=== PATIENT | female | born 1995 | race Caucasian/White ===

== ENCOUNTER 2016-10-17 02:12 | Emergency (ER) | payer OTHER ==
--- NOTE | 2016-10-17 04:45 | ED CLINICAL REPORT ---
Clinical Report - Physicians/Mid Levels [facility] [address] [place] [address] 10/17/2016 2:12 Patient: LUCIEN EL Time Seen: 02:16; initial patient contact. Arrived- By private vehicle. Historian- patient and family. HISTORY OF PRESENT ILLNESS Chief Complaint: INJURY TO HEAD. Location of injuries- head, chest and left hip. The injury occurred just prior to arrival. Occurred at home. Fell and landed on the ground; slipped. The patient complains of moderate pain in the chest and left lower extremity (hip). The patient sustained a moderate blow to the head and was dazed. No neck pain or seizure. The patient had loss of consciousness lasting several minutes but remembers the accident. REVIEW OF SYSTEMS No numbness, nausea, weakness, loss of vision or vomiting. No difficulty breathing, bladder dysfunction or laceration. All systems otherwise negative, except as recorded above. PAST HISTORY Negative. Problems: no known problems. Surgeries: No history of previous surgery. Additional Surgeries: no known surgeries. Medications: None. Allergies: No Known Drug Allergy. SOCIAL HISTORY Never smoker. Occasional alcohol use. No drug use. ADDITIONAL NOTES The nursing notes have been reviewed. PHYSICAL EXAM Vital Signs: 10/17/2016 02:32 BP: 115/64. HR: 74. RR: 14. O2 saturation: 100%. Temp: 97.8 F. Pain level now: 2/10. Have been reviewed as normal. Appearance: Lethargic. No acute distress. Head: Head non-tender. No swelling of head. Eyes: Pupils equal, round and reactive to light. EOM intact. ENT: No dental injury. Pharynx normal. Neck: Painless ROM. Neck non-tender. CVS: Heart sounds normal. Rate normal. Rhythm normal. Respiratory: Chest wall injury: mild tenderness located in the middle and left chest. No splinting present. No paradoxical movement. Abdomen: Soft and nontender. No organomegaly. Back: No tenderness. ROM normal. Skin: Skin intact. Skin warm and dry. Extremities: Left hip: mild tenderness. No erythema. No limitation in ROM. Neuro: Oriented X 3. Mood/affect normal. Speech normal. LABS, X-RAYS, AND EKG CT Head: Normal study. Head CT performed without contrast. The study was independently viewed by me, interpreted by the radiologist and discussed with the radiologist. PROGRESS AND PROCEDURES Disposition: Discharged home in good and improved condition. Condition: good. CLINICAL IMPRESSION Concussion. Loss of consciousness for a few seconds. Confusion. Multiple contusions to the left chest and left hip. INSTRUCTIONS Apply ice for 20 minutes four times a day. Don't apply ice directly to skin. Do not work today. Your Current Medications: CONTINUE TAKING THE FOLLOWING MEDICATIONS: None*. Follow-up: Follow up with your doctor in about two days. Call for an appointment. Screening today revealed the patient's blood pressure to be in the normal range. (Electronically signed by Ramo Fowler Dr. 10/18/2016 9:55)
--- NOTE | 2016-10-17 04:45 | ED ORDER SUMMARY ---
..... Patient: LUCIEN EL OrderSheet [facility] VisitID: [id number] [place] [address] 21y, F Registration Date/Time: 10/17/2016 ORDER SHEET Weight: 49.8 kg (stated) Allergies: No Known Drug Allergy GENERAL ORDERS: CT Head wo Cont Urgent (02:17 10/17/2016 Ashley Marr) (Ack 2:20 RFay) (2:55 JSanders R.N.) CBC w Diff Urgent (02:18 10/17/2016 Ashley Marr) (Ack 2:34 RKaruga) (2:55 JSanders R.N.) CMP Urgent (02:18 10/17/2016 Ashley Marr) (Ack 2:34 RKaruga) (2:55 JSanders R.N.) UA-Culture if indicated Urgent (02:18 10/17/2016 Ashley Marr) (Ack 2:34 RKaruga) (3:23 JSanders R.N.) Urine Drug Screen Urgent (02:18 10/17/2016 Ashley Marr) (Ack 2:34 RKaruga) (3:23 JSanders R.N.) Urine Urgent (02:18 10/17/2016 Ashley Marr) (Ack 2:34 RKaruga) (3:23 JSanders R.N.) Ethyl Alcohol Urgent (02:18 10/17/2016 Ashley Marr) (Ack 2:34 RKaruga) (2:55 JSanders R.N.) Ribs Unilat w PA Chest Left Urgent (04:03 10/17/2016 Ashley Marr) (Ack 4:12 RKaruga) (Cancelled: Physician Order4:40 Ashley Marr) MEDICATION ORDERS: IV FLUIDS: IV Saline Lock (02:18 10/17/2016 Ashley Marr) (2:56 JSanders R.N.) ORDER SHEET NOTES: [Electronically signed by Pia Glover R.N. (06:31 10/17/2016)] [Electronically signed by Ramo Fowler Dr. (09:55 10/18/2016)] [Electronically locked/signed by Pia Glover R.N. (06:31 10/17/2016)]
--- NOTE | 2016-10-17 04:45 | ED NURSING NOTES ---
Clinical Report - Nurses [facility] [address] [place] [address] 10/17/2016 2:12 Patient: LUCIEN EL TRIAGE 02:15 10/17/16 late entry -. --02:47 Pia Glover R.N. Triage time 02:Oct 17 2016. Acuity: LEVEL 2. Chief Complaint: FALL (On a wet board and she fell, conscious at that time then got dizzy and went back to ground, decrease LOC.). 02:21 10/17/16. --02:21 Pia Glover R.N. 02:32 10/17/16. BP: 115/64 (regular adult cuff) taken on the left arm. HR: 74. RR: 14. O2 saturation: 100% on room air. Temp: 97.8 F (oral). Pain level now: 06/25. --02:47 Pia Glover R.N. Weight: 49.8 kg stated. Height/Length: 63 inches Per Patient. BMI: 19.5. --02:46 Pia Glover R.N. Medications None. --03:08 Pia Glover R.N. Allergies No Known Drug Allergy. --03:08 Pia Glover R.N. History Arrived by private vehicle. Historian: (friend). Accompanied by friend. This occurred (1hour and 45 minutes ago). Occurred at home (in [place]). ( Friend says no N/V noted). 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 Trauma activation: Pre-hospital notification of patient arrival was not received. PAST MEDICAL HX: ( Unable to access patients condition due to Decrease LOC). SOCIAL HX: Never smoker. Occasional alcohol use; consumes beer. No drug use. No infectious disease exposure. --02:21 Pia Glover R.N. PROBLEMS: no known problems. ADDITIONAL SURGERIES: no known surgeries. Interventions ID band on patient. To treatment room. --02:21 Pia Glover R.N. PHYSICAL ASSESSMENT late entry - 02:20 10/17/16. To room via wheelchair. Patient gowned. GENERAL / NEURO / PSYCH: Appears in no acute distress. ( Patient drowsy, keeps asking same question about what happened. She remembers day, month and who president is. Patient awakens to loud voice). HEENT: Pupils equal, round and reactive to light. Head non-tender. RESPIRATORY: Respirations not labored. Chest nontender. Breath sounds within normal limits. CVS: Normal heart rate and rhythm. Pulses within normal limits. Capillary refill less than 2 seconds. GI / : Abdomen soft and nontender. SKIN: Skin intact. Skin is warm. BACK: Soft tissue tenderness in the left mid thoracic paraspinous region and left upper lumbar paraspinous region. --02:51 Pia Glover R.N. NURSING PROGRESS NOTES late entry - 02:15 10/17/16. Patient transported to CT by wheelchair with nurse. (02:15 Oct 17 2016). --02:52 Pia Glvoer R.N. late entry - 02:20 10/17/16. The plan of care for this patient has been created. Reassurance given. Two patient identifiers checked. Call light placed in reach. Side rails up x 2. Bed placed in lowest position. Brakes of bed on. Patient ready for evaluation- chart flagged and ED physician notified. --02:54 Pia Glover R.N. 02:54 10/17/16. BP: 111/70 (regular adult cuff) taken on the left arm. HR: 72. RR: 15. O2 saturation: 100% on room air. --02:55 Pia Glover R.N. 02:40 10/17/2016 Site #1 started via IV in the right antecubital space with an 20g angiocath, with aseptic technique and good blood return; one attempt. Blood drawn: rainbow set. Labeled in the presence of the patient and sent to the lab. Saline lock flushed with 10 mL saline. --02:55 Pia Glover R.N. 02:58 10/17/16. ( Patient keeps falling asleep and only waking up to pain and loud voice. Sat her up more and having her talk to her friend "Andrea" at bedside). --02:58 Pia Glover R.N. 03:00 10/17/16. ( Patient says she has a throbbing GILBERT on left temperal). --03:00 Pia Glover R.N. 03:01 10/17/16. BP: 105/65 (regular adult cuff) taken on the left arm, while sitting. HR: 73. RR: 16. O2 saturation: 100% on room air. --03:03 Pai Glover R.N. 03:06 10/17/16. ( Patient alert now, talking more to Andrea (friend), she doesnt remember what happened, she continues to ask what happened. She is A&O x 4. She says she has to work tomorrow. 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 --03:06 Pia Glover R.N. ( patient talking to friend, A&O x 4). [place] COMA SCORE: [place] Coma Scale: 15- eyes open spontaneously (4); best verbal response- oriented x 4 (5); best motor response- obeys commands (6). --04:02 Pia Glover R.N. 04:01 10/17/16. BP: 102/58 (regular adult cuff) taken on the left arm, while sitting. HR: 80. RR: 16. O2 saturation: 100% on room air. Pain level now: 1/10. Additional comments: GILBERT. --04:02 Pia Glover R.N. DISPOSITION / DISCHARGE 04:56 10/17/2016 Site #1 removed upon discharge. Bandaid applied. --05:06 Pia Glover R.N. 05:08 10/17/16. Departure time: 05:Oct 17 2016. Condition at departure: improved. No learning barriers present. Discharge instructions provided and reviewed with the patient. Treatments reviewed (Ice). Work note given. Patient verbalized understanding. Written instructions provided in [place]. The patient was discharged by the physician. She was discharged home and accompanied by manager fine. She left the Emergency Department ambulatory and via private vehicle. Dialysis Technician driving. --05:08 Pia Glover R.N. 05:04 10/17/16. BP: 106/55 (regular adult cuff) taken on the left arm. HR: 66. RR: 18. O2 saturation: 100% on room air. Temp: 97.8 F (oral). Pain level now: 05/25. --05:08 Pia Glover R.N. Locked/Released at 10/17/2016 6:31 by Pia Glover R.N.
--- NOTE | 2016-10-17 04:45 | ED ORDER SUMMARY ---
..... Patient: LUCIEN EL OrderSheet [facility] VisitID: [id number] [place] [address] 21y, F Registration Date/Time: 10/17/2016 ORDER SHEET Weight: 49.8 kg (stated) Allergies: No Known Drug Allergy GENERAL ORDERS: CT Head wo Cont Urgent (02:17 10/17/2016 Ashley Marr) (Ack 2:20 RFay) (2:55 JSanders R.N.) CBC w Diff Urgent (02:18 10/17/2016 Ashley Marr) (Ack 2:34 RKaruga) (2:55 JSanders R.N.) CMP Urgent (02:18 10/17/2016 Ashley Marr) (Ack 2:34 RKaruga) (2:55 JSanders R.N.) UA-Culture if indicated Urgent (02:18 10/17/2016 Ashley Marr) (Ack 2:34 RKaruga) (3:23 JSanders R.N.) Urine Drug Screen Urgent (02:18 10/17/2016 Ashley aMrr) (Ack 2:34 RKaruga) (3:23 JSanders R.N.) Urine Urgent (02:18 10/17/2016 Ashley Marr) (Ack 2:34 RKaruga) (3:23 JSanders R.N.) Ethyl Alcohol Urgent (02:18 10/17/2016 Ashley Marr) (Ack 2:34 RKaruga) (2:55 JSanders R.N.) Ribs Unilat w PA Chest Left Urgent (04:03 10/17/2016 Ashley Marr) (Ack 4:12 RKaruga) (Cancelled: Physician Order4:40 Aslhey Marr) MEDICATION ORDERS: IV FLUIDS: IV Saline Lock (02:18 10/17/2016 Ashley Marr) (2:56 JSanders R.N.) ORDER SHEET NOTES: [Electronically signed by Pia Glover R.N. (06:31 10/17/2016)] [Electronically signed by Ramo Fowler Dr. (09:55 10/18/2016)] [Electronically locked/signed by Pia Glover R.N. (06:31 10/17/2016)]
--- NOTE | 2016-10-17 04:45 | ED NURSING NOTES ---
Clinical Report - Nurses [facility] [address] [place] [address] 10/17/2016 2:12 Patient: LUCIEN EL TRIAGE 02:15 10/17/16 late entry -. --02:47 Pia Glover R.N. Triage time 02:Oct 17 2016. Acuity: LEVEL 2. Chief Complaint: FALL (On a wet board and she fell, conscious at that time then got dizzy and went back to ground, decrease LOC.). 02:21 10/17/16. --02:21 Pia Glover R.N. 02:32 10/17/16. BP: 115/64 (regular adult cuff) taken on the left arm. HR: 74. RR: 14. O2 saturation: 100% on room air. Temp: 97.8 F (oral). Pain level now: 06/25. --02:47 Pia Glover R.N. Weight: 49.8 kg stated. Height/Length: 63 inches Per Patient. BMI: 19.5. --02:46 Pia Glover R.N. Medications None. --03:08 Pia Glover R.N. Allergies No Known Drug Allergy. --03:08 Pia Glover R.N. History Arrived by private vehicle. Historian: (friend). Accompanied by friend. This occurred (1hour and 45 minutes ago). Occurred at home (in [place]). ( Friend says no N/V noted). 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 Trauma activation: Pre-hospital notification of patient arrival was not received. PAST MEDICAL HX: ( Unable to access patients condition due to Decrease LOC). SOCIAL HX: Never smoker. Occasional alcohol use; consumes beer. No drug use. No infectious disease exposure. --02:21 Pia Glover R.N. PROBLEMS: no known problems. ADDITIONAL SURGERIES: no known surgeries. Interventions ID band on patient. To treatment room. --02:21 Pia Glover R.N. PHYSICAL ASSESSMENT late entry - 02:20 10/17/16. To room via wheelchair. Patient gowned. GENERAL / NEURO / PSYCH: Appears in no acute distress. ( Patient drowsy, keeps asking same question about what happened. She remembers day, month and who president is. Patient awakens to loud voice). HEENT: Pupils equal, round and reactive to light. Head non-tender. RESPIRATORY: Respirations not labored. Chest nontender. Breath sounds within normal limits. CVS: Normal heart rate and rhythm. Pulses within normal limits. Capillary refill less than 2 seconds. GI / : Abdomen soft and nontender. SKIN: Skin intact. Skin is warm. BACK: Soft tissue tenderness in the left mid thoracic paraspinous region and left upper lumbar paraspinous region. --02:51 Pia Glover R.N. NURSING PROGRESS NOTES late entry - 02:15 10/17/16. Patient transported to CT by wheelchair with nurse. (02:15 Oct 17 2016). --02:52 Pia Glover R.N. late entry - 02:20 10/17/16. The plan of care for this patient has been created. Reassurance given. Two patient identifiers checked. Call light placed in reach. Side rails up x 2. Bed placed in lowest position. Brakes of bed on. Patient ready for evaluation- chart flagged and ED physician notified. --02:54 Pia Glover R.N. 02:54 10/17/16. BP: 111/70 (regular adult cuff) taken on the left arm. HR: 72. RR: 15. O2 saturation: 100% on room air. --02:55 Pia Glover R.N. 02:40 10/17/2016 Site #1 started via IV in the right antecubital space with an 20g angiocath, with aseptic technique and good blood return; one attempt. Blood drawn: rainbow set. Labeled in the presence of the patient and sent to the lab. Saline lock flushed with 10 mL saline. --02:55 Pia Glover R.N. 02:58 10/17/16. ( Patient keeps falling asleep and only waking up to pain and loud voice. Sat her up more and having her talk to her friend "Andrea" at bedside). --02:58 Pia Glover R.N. 03:00 10/17/16. ( Patient says she has a throbbing GILBERT on left temperal). --03:00 Pia Glover R.N. 03:01 10/17/16. BP: 105/65 (regular adult cuff) taken on the left arm, while sitting. HR: 73. RR: 16. O2 saturation: 100% on room air. --03:03 Pia Glover R.N. 03:06 10/17/16. ( Patient alert now, talking more to Andrea (friend), she doesnt remember what happened, she continues to ask what happened. She is A&O x 4. She says she has to work tomorrow. 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 --03:06 Pia Glover R.N. ( patient talking to friend, A&O x 4). [place] COMA SCORE: [place] Coma Scale: 15- eyes open spontaneously (4); best verbal response- oriented x 4 (5); best motor response- obeys commands (6). --04:02 Pia Glover R.N. 04:01 10/17/16. BP: 102/58 (regular adult cuff) taken on the left arm, while sitting. HR: 80. RR: 16. O2 saturation: 100% on room air. Pain level now: 1/10. Additional comments: GILBERT. --04:02 Pia Glover R.N. DISPOSITION / DISCHARGE 04:56 10/17/2016 Site #1 removed upon discharge. Bandaid applied. --05:06 Pia Glover R.N. 05:08 10/17/16. Departure time: 05:Oct 17 2016. Condition at departure: improved. No learning barriers present. Discharge instructions provided and reviewed with the patient. Treatments reviewed (Ice). Work note given. Patient verbalized understanding. Written instructions provided in Bulgarian. The patient was discharged by the physician. She was discharged home and accompanied by cement gun operator. She left the Emergency Department ambulatory and via private vehicle. Manager Psychiatry driving. --05:08 Pia Glover R.N. 05:04 10/17/16. BP: 106/55 (regular adult cuff) taken on the left arm. HR: 66. RR: 18. O2 saturation: 100% on room air. Temp: 97.8 F (oral). Pain level now: 05/25. --05:08 Pia Glover R.N. Locked/Released at 10/17/2016 6:31 by Pia Glover R.N.
--- NOTE | 2016-10-17 07:07 | DIAGNOSTIC IMAGING REPORT ---
PROCEDURE: CT HEAD WITHOUT CONTRAST INDICATION: HEAD INJURY TECHNIQUE: Axial CT images were acquired through the head. Coronal and sagittal reformations were created. COMPARISON: None. FINDINGS: No intracranial hemorrhage or extraaxial fluid collections. Ventricles are normal in size, shape and position. There is no mass, mass effect or midline shift. The lima-white matter differentiation is normal. There is no edema. The calvarium is intact. The paranasal sinuses and mastoid air cells are normally aerated. The extracranial soft tissues and orbits are normal. IMPRESSION: 1. No CT evidence of acute intracranial process. 2. Preliminary report by Dr. Nikunj Keen of [facility] radiology. All CT scans at this facility use dose modulation, iterative reconstruction, and/or weight-based dosing when appropriate to reduce radiation dose to as low as reasonably achievable.
--- NOTE | 2016-10-18 09:55 | ED MAR SUMMARY ---
..... Medication Administration Record [facility] [address] [place] [address] Patient: LUCIEN EL Visit ID: [id number] 21y, F Weight: 49.8 kg Height/Length: 63 in BMI: 19.5 ALLERGIES: No Known Drug Allergy
--- NOTE | 2016-10-18 09:55 | ED MED RECONCILIATION SUMMARY ---
Patient: LUCIEN EL Medication Reconciliation Report [facility] VisitID: [id number] [address] [place] [address] 21y, F Registration Date/Time: 10/17/2016 Weight: 49.8 kg Height/Length: 63 in. BMI: 19.5 ALLERGIES: No Known Drug Allergy The patient's Home Medications are listed below: NONE. The source(s) of the original Home Medication information: Not obtained. The following Medications were given to the patient in the Emergency Department: None. The following Medications were prescribed to the patient: None.
--- NOTE | 2016-10-18 09:55 | ED DISCHARGE INSTRUCTIONS ---
Patient: LUCIEN EL General Instructions [facility] VisitID: [id number] [place] [address] 21y, F Registration Date/Time: 10/17/2016 Concussion. Loss of consciousness for a few seconds. Confusion. Multiple contusions to the left chest and left hip. INSTRUCTIONS Apply ice for 20 minutes four times a day. Don't apply ice directly to skin. Do not work today. Your Current Medications: CONTINUE TAKING THE FOLLOWING MEDICATIONS: None*. Follow-up: Follow up with your doctor in about two days. Call for an appointment. Screening today revealed the patient's blood pressure to be in the normal range. ADDITIONAL INFORMATION Contusion,Soft Tissue You have a CONTUSION, which is a bruise with swelling and some bleeding under the skin. There are no broken bones. This injury takes a few days to a few weeks to heal. Home Care: 1) Keep the injured part elevated to reduce pain and swelling. This is especially important during the first 48 hours. 2) Make an ice pack (ice cubes in a plastic bag, wrapped in a towel) and apply for 20 minutes every 1-2 hours the first day. Continue this 3-4 times a day until the pain and swelling goes away. 3) You may use acetaminophen (Tylenol) or ibuprofen (Motrin, Advil) to control pain, unless another pain medicine was prescribed. [ NOTE : If you have chronic liver or kidney disease or ever had a stomach ulcer or GI bleeding, talk with your doctor before using these medicines.] Follow Up with your doctor or this facility if you are not improving within the next THREE days. [NOTE: If X-rays were taken, they will be reviewed by a radiologist. You will be notified of any new findings that may affect your care.] Get Prompt Medical Attention if any of the following occur: -- Pain or swelling increases -- Injured arm or leg becomes cold, blue, numb or tingly -- Redness, warmth or drainage from the skin Head Injury, No Wake-Up (Adult) You have had a head injury. It does not appear serious at this time. Symptoms of a more serious problem (concussion, bruising, or bleeding in the brain) may appear later. Therefore, watch for the WARNING SIGNS listed below. Home Care: Your healthcare provider will tell you whether its okay to drive. If so, you can drive yourself home. For the next day or so, be careful when driving or using heavy machinery until you are sure you have no delayed symptoms. During the next 24 hours someone must stay with you to check for the signs below. It is not necessary to stay awake or be awakened during the night. If you have swelling of the face or scalp, apply an ice pack (ice cubes in a plastic bag, wrapped in a towel) for 20 minutes. Do this every 1-2 hours until the swelling starts to go down. Do not use aspirin or ibuprofen (Motrin, Advil) after a head injury.You may use acetaminophen (Tylenol)to control pain, unless another pain medicine was prescribed. [NOTE: If you have chronic liver or kidney disease or ever had a stomach ulcer or GI bleeding, talk with your doctor before using these medicines.] For the next 24 hours: Do not take alcohol, sedatives or medicines that make you sleepy. Avoid strenuous activities. No lifting or straining. If you have had any symptoms of a concussion today (nausea, vomiting, dizziness, confusion, headache, memory loss or if you were knocked out), do not return to sports or any activity that could result in another head injury until all symptoms are gone and you have been cleared by your doctor. A second head injury before fully recovering from the first one can lead to serious brain injury. Follow Up with your doctor if symptoms are not improving after 24 hours, or as directed. [NOTE: A radiologist will review any X-rays or CT scans that were taken. We will notify you of any new findings that may affect your care.] Get Prompt Medical Attention if any of the followingWARNING SIGNS occur: Repeated vomiting Severe or worsening headache or dizziness Unusual drowsiness, or unable to awaken as usual Confusion or change in behavior or speech, memory loss, blurred vision Convulsion (seizure) Increasing scalp or face swelling Redness, warmth or pus from the swollen area Fluid drainage or bleeding from the nose or ears You have been given the following additional information: Contusion, Soft Tissue HEAD INJURY, No Wake-Up (Adult) Do not work today. (Electronically signed by Ramo Fowler Dr. 10/18/2016 9:55)
--- NOTE | 2016-10-18 09:55 | ED MED RECONCILIATION SUMMARY ---
Patient: LUCIEN EL Medication Reconciliation Report [facility] VisitID: [id number] [address] [place] [address] 21y, F Registration Date/Time: 10/17/2016 Weight: 49.8 kg Height/Length: 63 in. BMI: 19.5 ALLERGIES: No Known Drug Allergy The patient's Home Medications are listed below: NONE. The source(s) of the original Home Medication information: Not obtained. The following Medications were given to the patient in the Emergency Department: None. The following Medications were prescribed to the patient: None.
--- NOTE | 2016-10-18 09:55 | ED MAR SUMMARY ---
..... Medication Administration Record [facility] [address] [place] [address] Patient: LUCIEN EL Visit ID: [id number] 21y, F Weight: 49.8 kg Height/Length: 63 in BMI: 19.5 ALLERGIES: No Known Drug Allergy
== END 2016-10-17 05:06 | disposition home or self-care (01) ==
LOC: ED SRH 02:12
DX: S06.0X1A Concussion with loss of consciousness of 30 minutes or less, initial encounter (principal); S20.212A Contusion of left front wall of thorax, initial encounter; S70.02XA Contusion of left hip, initial encounter; W01.0XXA Fall on same level from slipping, tripping and stumbling without subsequent striking against object, initial encounter; Y93.9 Activity, unspecified; Y92.009 Unspecified place in unspecified non-institutional (private) residence as the place of occurrence of the external cause; Y99.9 Unspecified external cause status; R41.0 Disorientation, unspecified
CPT/HCPCS: 90004; 90100; 92010; 92760; 92761; 92762; 92763; 92764; 92765; 92766; 92767; 93070; 95059